=== PATIENT | male | born 1945 | race Caucasian/White ===

== ENCOUNTER 2018-01-02 13:26 | Outpatient (CLI) | payer MEDICARE, BC ==
--- NOTE | 2018-01-02 15:49 | MRI ---
MRI ABDOMEN WITH AND WITHOUT CONTRAST: HISTORY: Abnormal mass seen on the recent CT examination. COMPARISON: Outside facility CT exam. TECHNIQUE: Multiplanar, multisequence MRI performed prior to and after the intravenous administration of contras t. FINDINGS: Corresponding to the mass effect segment 2, there is a T2 hyperintense mass measuring up to 1.8 cm wi th peripheral centripetal enhancement indicating hemangioma. No other abnormal enhancing liver mass. There is cholelithiasis that results in a 2-3 mm calculus distal common bile duct right before the co nfluence with the ampula and pancreatic duct. Pancreatic duct size is normal. No dilated loops of large or small bowel in the upper abdomen. No adenopathy. The marrow signal in the spine appears unremarkable. IMPRESSION: 1. Corresponding to the recent abnormality seen on the CT examination is hemangioma. 2. Choledocholithiasis with a 2-3 mm calculus distal common bile duct before the confluence of the a mpulla. 3. Likely a sebaceous cyst or granuloma of the left anterior abdominal wall near level of the umbili cus, but this again is completely evaluated on this examination. Clinical correlation is advised. CODE T POS: [facility]
== END 2018-01-02 13:27 | disposition home or self-care (01) ==
LOC: SCSMRI 13:26
PROVIDERS: ATTEND Internal Medicine Gastroenterology
DX: R93.8 Abnormal findings on diagnostic imaging of other specified body structures (principal); D18.03 Hemangioma of intra-abdominal structures; K80.50 Calculus of bile duct without cholangitis or cholecystitis without obstruction
CPT/HCPCS: 74183

== ENCOUNTER 2018-01-13 08:18 | Day surgery (SDC) | payer MEDICARE, BC ==
[2018-01-10 11:40] VITALS: BMI 27.8
[2018-01-13] MEDS ORDERED: Indomethacin 50 MG SUPP ONE (10:07)
[2018-01-13] MEDS ORDERED: Iothalamate Meglumine 60% 50 ML VIAL FS ONE ×2 (10:08→10:13)
[2018-01-13] MEDS ORDERED: Fentanyl 100 MCG/2 ML VIAL ONE (10:24)
--- NOTE | 2018-01-13 12:27 | RAD ---
ERCP: Intraprocedure fluoroscopy was provided for Dr. Crews. A total of 5 images are submitted for interpre tation. History: Known choledocholithiasis. FINDINGS: There is retrograde opacification of a normal caliber common bile duct and intrahepatic biliary syste m. Last image demonstrates a distal common bile duct stent. Choledocholithiasis is difficult to appr eciate radiographically. IMPRESSION: Unremarkable ERCP. POS: [facility]
[2018-01-13] MEDS ORDERED: Lidocaine 1% PF 5 ML VIAL ONE (12:28)
[2018-01-13] MEDS ORDERED: Ketorolac Tromethamine 30 MG/ML VIAL ONE (12:28)
[2018-01-13] MEDS ORDERED: Ondansetron HCl/PF 4 MG/2 ML Vial ONE (12:28)
[2018-01-13] MEDS ORDERED: PROPOFOL 200 MG/20 ML VIAL ONE (12:28)
[2018-01-13] MEDS ORDERED: Glycopyrrolate 0.2 MG/ML 5 ML SYRINGE ONE (12:28)
--- NOTE | 2018-01-13 12:46 | OP ---
DATE OF PROCEDURE: 01/13/2018 PROCEDURE: Endoscopic retrograde cholangiopancreatography with sphincterotomy. PREOPERATIVE DIAGNOSIS: Choledocholithiasis, identified by MRI of the abdomen. Cholelithiasis was a lso seen. His LFTs have been normal. He has been pain free. OPERATIVE NOTE: Informed consent was obtained from the patient. He was sedated with general anesthe uriel and placed in the prone position. The duodenoscope was advanced easily to the second portion of the duodenum. The ampulla was identified and appeared unremarkable. The common bile duct was easily selectively cannulated. Cholangiogram was performed, which overall appeared normal except for there is a slight meniscus in the distal common bile duct. A complete sphincterotomy was then performed. The duct was swept with a 9 mm balloon with no stone identified. The occlusion cholangiogram was cl ear. The balloon passed easily through the sphincterotomy. The air and fluid were suctioned from th e stomach. The patient tolerated the procedure well without immediate complications. IMPRESSION: 1. Overall, normal cholangiogram with a possible meniscus at the distal most duct. 2. Complete sphincterotomy performed. 3. Balloon sweep of the bile duct with a 9 mm balloon passes easily through the sphincterotomy. No stone was identified. The small 2-3 mm stone noted by MRCP has likely passed. RECOMMENDATIONS: 1. Follow up in GI clinic to follow the trend of the liver tests. 2. Referral for cholecystectomy.
== END 2018-01-13 16:30 | disposition home or self-care (01) ==
LOC: SDC 08:18
PROVIDERS: ATTEND Internal Medicine Gastroenterology
PROC: 0F798ZZ Dilation of Common Bile Duct, Via Natural or Artificial Opening Endoscopic (ICD-10-PCS; principal; 2018-01-13)
DX: K80.70 Calculus of gallbladder and bile duct without cholecystitis without obstruction (principal); N40.0 Benign prostatic hyperplasia without lower urinary tract symptoms; E78.00 Pure hypercholesterolemia, unspecified; K59.00 Constipation, unspecified; Z85.038 Personal history of other malignant neoplasm of large intestine; Z86.010 Personal history of colon polyps; Z79.899 Other long term (current) drug therapy
CPT/HCPCS: 74330; J1885; J2001; J2405; J2704; J3010; Q9961

== ENCOUNTER 2018-01-14 04:07 | Emergency (ER) | payer MEDICARE, BC ==
[2018-01-14 05:17] LABS: Bilirubin Negative (Negative); Blood, Urine Negative (Negative); Clarity Clear (Clear); Glucose, Urine (Dipstick) Negative (Negative); Leukocyte Negative (Negative); Nitrite Negative (Negative); Protein, Urine (Dipstick) Negative (Neg-Trace); Specific Gravity, Urine 1.015 (1.005-1.030); Urobilinogen 0.2 mg/dL (0.2-1.0)
[2018-01-14 05:18] LABS: #Basophils 0.1 thou/uL (0.0-0.2); #Eosinphils 0.1 thou/uL (0.0-0.7); #Lymphocytes 0.7 thou/uL (1.20-3.40); #Monocytes 0.5 thou/uL (0.11-0.59); #Neutrophils 9.3 thou/uL (1.40-6.50); %Basophils 0.5 % (0.0-1.0); %Eosinophils 0.6 % (0.0-10.0); %Lymphocytes 6.1 % (21.0-51.0); %Monocytes 4.9 % (0.0-10.0); %Neutrophils 87.9 % (42.0-75.0); Hemoglobin 17.3 g/dL (14.0-18.0); Mean Corpuscular HGB CONC 34.2 g/dL (32.0-36.0); Mean Corpuscular Hemoglobin 29.8 pg (27.0-31.0); Mean Corpuscular Volume 87.2 fL (78.0-98.0); Mean Platelet Volume 7.1 fL (7.4-10.4); Platelet Count 152 thou/uL (130-400); Red Blood Cell (RBC) Count 5.81 mill/uL (4.70-6.10); White Blood Cell (WBC) Count 10.6 thou/uL (4.8-10.8)
[2018-01-14 05:29] LABS: Anion Gap 14 mmol/L (10-20); BUN (Urea Nitrogen) 15 mg/dL (8.4-25.7); Calc. Creatinine Clearance 0 mL/min (70-130); Calcium 9.9 mg/dL (7.8-10.44); Carbon Dioxide 28 mmol/L (23-31); Chloride 105 mmol/L (98-107); Estimated GFR-MDRD 60; Glucose 116 mg/dL (83-110); Potassium 4.1 mmol/L (3.5-5.1); Sodium 143 mmol/L (136-145)
[2018-01-14] MEDS ORDERED: Acetaminophen 500 MG TAB ONE (06:46)
== END 2018-01-14 06:55 | disposition home or self-care (01) ==
LOC: SCSER 04:07
DX: R33.9 Retention of urine, unspecified (principal); E78.5 Hyperlipidemia, unspecified; Z79.899 Other long term (current) drug therapy
CPT/HCPCS: 36415; 51701; 80048; 81003; 85025

== ENCOUNTER 2018-03-10 09:49 | Outpatient (CLI) | payer MEDICARE, BC ==
[2018-03-10 10:43] LABS: #Eosinphils 0.1 thou/uL (0.0-0.7); #Lymphocytes 1.9 thou/uL (1.20-3.40); #Monocytes 0.5 thou/uL (0.11-0.59); #Neutrophils 3.4 thou/uL (1.40-6.50); %Basophils 0.5 % (0.0-1.0); %Eosinophils 1.8 % (0.0-10.0); %Lymphocytes 31.7 % (21.0-51.0); Hemoglobin 16.5 g/dL (14.0-18.0); Mean Corpuscular HGB CONC 32.3 g/dL (32.0-36.0); Mean Corpuscular Hemoglobin 29.5 pg (27.0-31.0); Mean Corpuscular Volume 91.2 fL (78.0-98.0); Mean Platelet Volume 7.3 fL (7.4-10.4); Platelet Count 191 thou/uL (130-400); RBC Distribution Width 12.4 % (11.5-14.5); Red Blood Cell (RBC) Count 5.61 mill/uL (4.70-6.10)
[2018-03-10 11:07] LABS: ALT (SGPT) 27 U/L (8-55); AST (SGOT) 27 U/L (5-34); Albumin 4.4 g/dL (3.4-4.8); Alkaline Phosphatase 82 U/L (40-150); Anion Gap 10 mmol/L (10-20); BUN (Urea Nitrogen) 26 mg/dL (8.4-25.7); Bilirubin, Direct 0.2 mg/dL (0.1-0.3); Bilirubin, Total 0.6 mg/dL (0.2-1.2); Calc. Creatinine Clearance 0 mL/min (70-130); Calcium 9.5 mg/dL (7.8-10.44); Carbon Dioxide 29 mmol/L (23-31); Chloride 105 mmol/L (98-107); Estimated GFR-MDRD 65; Glucose 92 mg/dL (83-110); Potassium 4.3 mmol/L (3.5-5.1); Protein, Total 6.7 g/dL (5.8-8.1); Sodium 140 mmol/L (136-145)
== END 2018-03-10 09:50 | disposition home or self-care (01) ==
LOC: LABBT 09:49
PROVIDERS: ATTEND Surgery
DX: Z01.812 Encounter for preprocedural laboratory examination (principal); K80.50 Calculus of bile duct without cholangitis or cholecystitis without obstruction
CPT/HCPCS: 80048; 80076; 85025

== ENCOUNTER 2018-03-13 07:32 | Day surgery (SDC) | payer MEDICARE, BC ==
[2018-03-10 10:22] VITALS: BMI 29.4
[2018-03-13] MEDS ORDERED: CEFAZOLIN 2 GM/50 ML BAG ONE (08:18)
[2018-03-13] MEDS ORDERED: Iothalamate Meglumine 60% 50 ML VIAL FS ONE (08:55)
[2018-03-13] MEDS ORDERED: Bupivacaine/Epinephrine 0.25% 30 ML VIAL ONE (08:55)
[2018-03-13] MEDS ORDERED: Fentanyl 100 MCG/2 ML VIAL ONE ×4 (09:03→11:52)
--- NOTE | 2018-03-13 11:44 | RAD ---
CHOLANGIOGRAM IN SURGERY: COMPARISON: MRI of the abdomen 01/02/2018 and ERCP 01/13/2018. HISTORY: Choledocholithiasis. FINDINGS/IMPRESSION: Limited intraoperative fluoroscopic views of a cholangiogram taken in surgery were submitted for inte rpretation. Contrast is seen within the common bile duct and duodenum. No biliary dilatation is see n. No obvious filling defects are seen within the common bile duct. POS: [facility]
[2018-03-13] MEDS ORDERED: Ketorolac Tromethamine 30 MG/ML VIAL ONE (12:35)
[2018-03-13] MEDS ORDERED: Lidocaine 1% PF 5 ML VIAL ONE (12:35)
[2018-03-13] MEDS ORDERED: Dexamethasone 20 MG/5 ML VIAL ONE (12:35)
[2018-03-13] MEDS ORDERED: Glycopyrrolate 0.2 MG/ML 5 ML SYRINGE ONE (12:35)
[2018-03-13] MEDS ORDERED: PROPOFOL 200 MG/20 ML VIAL ONE (12:35)
[2018-03-13] MEDS ORDERED: Ondansetron PF 4 MG/2 ML Vial ONE (12:35)
[2018-03-13] MEDS ORDERED: HYDROcodone/Acetaminophen 5/325 mg Tablet ONE (13:41)
--- NOTE | 2018-03-14 14:35 | OP ---
DATE OF PROCEDURE: 03/13/2018 PREOPERATIVE DIAGNOSIS: History of choledocholithiasis and cholelithiasis. POSTOPERATIVE DIAGNOSES: 1. History of choledocholithiasis and cholelithiasis. 2. Multiple intra-abdominal adhesions. PROCEDURE PERFORMED: Laparoscopic cholecystectomy with intraoperative cholangiogram. ANESTHESIA: General. BLOOD LOSS: Minimal. COMPLICATION: None. SPECIMENS: Gallbladder. FINDINGS: Normal cholangiogram. DESCRIPTION OF PROCEDURE: The patient was taken to the operating room and laid supine on the operating room table. After general anesthetic was obtained, the abdomen was prepped and draped in a sterile fashion. Due to his previous surgery, left subcostal 5 mm Optiview trocar was placed. High-flow pneumoperitoneum was obtained. The Optiview trocar was in a pocket surrounded by bowel. Even though the abdomen insufflates with air, the open abdomen is not able to be seen, so the trocar is left in place and a curved incision was made below the umbilicus in the area of previous midline incision. Cautery was and a small zari was made in the fascia. The abdominal cavity was entered carefully using a Danae clamp. A 5-mm trocar was placed and high-flow pneumoperitoneum was obtained. Two right upper quadrant 5-mm ports and a subxiphoid 5-mm port were all placed under direct visualization. Camera was placed in the upper port, looked back at the umbilicus and this port as well is surrounded by intraabdominal adhesions and small intestine. Extensive lysis of adhesions is used to take down all the small bowel loops to make sure there is no injury. All the small bowel loop adhesions in the left upper quadrant are taken down to be sure that the subcostal Optiview did not injure the bowel. There was no obvious injury to any bowel. There was no ongoing bleeding. The peritoneum of the gallbladder was opened anteriorly and posteriorly. The critical view triangle was seen showing only the cystic duct and cystic artery branching from medial to lateral. There were no other branching structures. A clip was placed on the cystic duct. A cholangiocatheter was brought in through a separate stab incision and cholangiogram was performed, showed good contrast flow into the duodenum, left and right hepatic ducts without obstruction. The cholangiocatheter was removed and two clips were placed proximally on the cystic duct, cut using laparoscopic scissors. Cystic artery was taken in same way. Cautery was used to dissect the gallbladder out of the gallbladder fossa. The gallbladder was placed in an Endo Catch bag and brought out through the Roman. There was no bleeding in the liver bed. All port sites were infiltrated using local anesthetic. All ports were removed under camera visualization. Pneumoperitoneum was let down. Again, extensive lysis of adhesions was performed and the small bowel was inspected and found to be without injury prior to finishing the procedure. PDS was used to close the fascia defect below the umbilicus. All incision were irrigated and closed with 4-0 Monocryl and Dermabond. The patient was transferred to Recovery in stable condition. All instrument counts, needle counts, and lap counts were correct. Job ID: [id number]
== END 2018-03-13 15:30 | disposition home or self-care (01) ==
LOC: SDC 07:32
PROVIDERS: ATTEND Surgery
PROC: 0FT44ZZ Resection of Gallbladder, Percutaneous Endoscopic Approach (ICD-10-PCS; principal; 2018-03-13)
PROC: BF131ZZ Fluoroscopy of Gallbladder and Bile Ducts using Low Osmolar Contrast (ICD-10-PCS; 2018-03-13)
DX: K80.10 Calculus of gallbladder with chronic cholecystitis without obstruction (principal); K66.0 Peritoneal adhesions (postprocedural) (postinfection); Z79.899 Other long term (current) drug therapy
CPT/HCPCS: 47532; 88304; 96374; J1100; J1610; J1885; J2001; J2405; J2704; J3010; Q9961

== ENCOUNTER 2019-06-04 08:53 | Outpatient (CLI) | payer MEDICARE, BC ==
--- NOTE | 2019-06-04 10:43 | RAD ---
KUB: Date: 06/04/2019 HISTORY: Chronic constipation. FINDINGS: The bowel gas pattern appears nonobstructed. No renal calculi are seen. Surgical clips in the right u pper quadrant are most compatible with cholecystectomy. There are arthritic changes of the spine. IMPRESSION: No acute findings. POS: [facility]
== END 2019-06-04 08:54 | disposition home or self-care (01) ==
LOC: SCSRAD 08:53
PROVIDERS: ATTEND Internal Medicine Gastroenterology
DX: K59.09 Other constipation (principal)
CPT/HCPCS: 74018

== ENCOUNTER 2020-04-18 13:40 | Outpatient (CLI) | payer MEDICARE ==
[~2020-04-18 13:40] MED LIST: Magnevist 469MG/ML 20 ML VIAL ONE
--- NOTE | 2020-04-18 19:07 | MRI ---
MR ABDOMEN WITH AND WITHOUT CONTRAST: History: Pruritus. Comparison: MRI 01-02-18 FINDINGS: Multiplanar, multisequence MRI of the abdomen performed prior to and after the intravenous administra tion of contrast. No significant pericardial or pleural effusion. The spleen is unremarkable. Prior cholecystectomy. Along the second portion of the duodenum, along the lateral margin, is a fluid filled diverticulum. M ild intrahepatic and extrahepatic biliary dilatation due to multiple stacked stones within the more c entral common bile duct. The common bile duct measures up to 9 mm. Partially sclerosing hemangioma hepatic segment 2. Small scattered hepatic segment 5 and 6 cysts, sub 5 mm. Hepatic veins are patent. Portal vein is patent. Aorta is nonaneurysmal. Likely some mild narrowing of the celiac trunk via the median arcuate ligament. The superior mesenter ic artery is patent. Superior mesenteric vein is patent. No hydronephrosis. No abnormal enhancing renal mass. No noemi hepatis adenopathy. No intraperitoneal or periaortic adenopathy. Mild hyperenhancement of th e distal common bile duct within the pancreas. IMPRESSION: Multiple stacked choledocholithiasis within the distal common bile duct at the pancreatic head with m ild hyperenhancement indicating some inflammatory response and cholangitis. ERCP with removal recomme nded. Code CR. A [employer] message was sent to the ordering provider, Maria Isabel Holland, at 3:35 p.m. POS: [facility]
== END 2020-04-18 13:41 | disposition home or self-care (01) ==
LOC: BICMRI 13:40
PROVIDERS: ATTEND Physician Assistant Medical
DX: L29.9 Pruritus, unspecified (principal); R94.5 Abnormal results of liver function studies; K80.50 Calculus of bile duct without cholangitis or cholecystitis without obstruction; K83.09 Other cholangitis
CPT/HCPCS: 74183; 82565; A9579

== ENCOUNTER 2020-04-19 10:18 | Outpatient (CLI) | payer MEDICARE ==
[2020-04-19 18:58] LABS: SARS-CoV-2 MS2 Positive; SARS-CoV-2 N Gene Negative; SARS-CoV-2 S Gene Negative; SARS-CoV-2 by NAA Not Detected (NotDetected); SARS-CoV-2 orf1ab Negative
== END 2020-04-19 10:19 | disposition home or self-care (01) ==
LOC: LABBT 10:18
PROVIDERS: ATTEND Internal Medicine Gastroenterology
DX: Z01.812 Encounter for preprocedural laboratory examination (principal); K80.50 Calculus of bile duct without cholangitis or cholecystitis without obstruction; R94.5 Abnormal results of liver function studies; Z20.822 Contact with and (suspected) exposure to COVID-19
CPT/HCPCS: 87635; U0003

== ENCOUNTER 2020-04-20 01:10 | Observation (INO) | payer MEDICARE ==
[2020-04-20 01:51] LABS: #Lymphocytes 0.6 thou/uL (1.20-3.40); #Monocytes 0.7 thou/uL (0.11-0.59); #Neutrophils 10.8 thou/uL (1.40-6.50); %Basophils 0.1 % (0.0-1.0); %Eosinophils 0.1 % (0.0-10.0); %Lymphocytes 4.6 % (21.0-51.0); %Monocytes 6.1 % (0.0-10.0); %Neutrophils 89.1 % (42.0-75.0); Hemoglobin 16.3 g/dL (14.0-18.0); Mean Corpuscular HGB CONC 33.3 g/dL (32.0-36.0); Mean Corpuscular Hemoglobin 31.2 pg (27.0-31.0); Mean Corpuscular Volume 93.7 fL (78.0-98.0); Mean Platelet Volume 8.2 fL (7.4-10.4); Platelet Count 185 thou/uL (130-400); RBC Distribution Width 11.9 % (11.5-14.5); Red Blood Cell (RBC) Count 5.23 mill/uL (4.70-6.10); White Blood Cell (WBC) Count 12.1 thou/uL (4.8-10.8)
[2020-04-20 02:12] LABS: ALT (SGPT) 321 U/L (8-55); AST (SGOT) 311 U/L (5-34); Albumin 4.1 g/dL (3.4-4.8); Alkaline Phosphatase 933 U/L (40-110); Anion Gap 19 mmol/L (10-20); BUN (Urea Nitrogen) 20 mg/dL (8.4-25.7); Bilirubin, Total 4.4 mg/dL (0.2-1.2); Calc. Creatinine Clearance 0 mL/min (70-130); Calcium 9.2 mg/dL (7.8-10.44); Carbon Dioxide 22 mmol/L (23-31); Chloride 100 mmol/L (98-107); Globulin 2.8 g/dL (2.4-3.5); Glucose 135 mg/dL (83-110); Lipase 17 U/L (8-78); Potassium 3.6 mmol/L (3.5-5.1); Protein, Total 6.9 g/dL (5.8-8.1); Sodium 137 mmol/L (136-145)
[2020-04-20] MEDS ORDERED: Morphine 4 MG/ML VIAL ONE (02:59)
[2020-04-20] MEDS ORDERED: Piperacillin/Tazobactam 3.375 GM VIAL ONE ×2 (03:00→15:27)
[2020-04-20] MEDS ORDERED: Ondansetron PF 4 MG/2 ML Vial ONE ×2 (03:00→09:04)
--- NOTE | 2020-04-20 04:20 | PDOC.HHP ---
Hospitalist HPI - History of Present Illness abdominal pain History of Present Illness: 74 yr old male with paroxysmal atrial flutter s/p ablation , colon cancer s/p resection in the 1980s , chronic abdominal pain s/p diagnosed with gallstones and underwent cholecystectomy 2 years ago but still recurrent low grade pain symptoms . He was seen by GI and noted on abdominal imaging with choledocholithiasis and scheduled for ERCP today. He developed sudden nausea, with chills and recurrence of his abdominal pain this pm . He presented for eval . GI has been discussed with and plan for continuing ERCP in am. He was noted with elevated WBC at 12.6. He has been started on antibiotics. He reports hx of recurrent urine retention post general anaesthesia requiring smith catheter placement. Hospitalist ROS - Review of Systems Constitutional: reports: fever, chills, malaise Eyes: denies: pain, vision change, conjunctivae inflammation, eyelid inflammation, redness, other ENT: denies: ear pain, ear discharge, nose pain, nose discharge, nose congestion, mouth pain, mouth swelling, throat pain, throat swelling, other Respiratory: denies: cough, dry, shortness of breath, hemoptysis, SOB with excertion, pleuritic pain, sputum, wheezing, other Cardiovascular: denies: chest pain, palpitations, orthopnea, paroxysmal noc. dyspnea, edema, light headedness, other Gastrointestinal: reports: nausea, abdominal pain, constipation Genitourinary: reports: retention Musculoskeletal: denies: neck pain, shoulder pain, arm pain, back pain, hand pain, leg pain, foot pain, other Skin: denies: rash, lesions, amado, bruising, other Neurological: denies: weakness, numbness, incoordination, change in speech, confusion, seizures, other Hospitalist History - Past Medical History Source: patient Cardiac: reports: Hyperlipidemia Heme/Onc: reports: Cancer - Family History Family History: reports: cancer, cerebrovascular accident - Social History Smoking Status: Never smoker Activity level: independent ambulation - Exam General Appearance: NAD, awake alert General - other findings: Middle aged male , Eye: PERRL, anicteric sclera ENT: normocephalic atraumatic, moist mucosa Neck: supple, no JVD Heart: RRR, no murmur Respiratory: CTAB, no wheezes Gastrointestinal: soft, non-tender, no guarding, no rigidity Extremities: no cyanosis, no clubbing Skin: normal turgor, no lesions Neurological: cranial nerve grossly intact, no focal deficits Hospitalist Results - Labs Result Diagrams: 04/20/20 01:41 04/20/20 01:41 Lab results: WBC 12.1 thou/uL (4.8-10.8) H 04/20/20 01:41 Hgb 16.3 g/dL (14.0-18.0) 04/20/20 01:41 Hct 49.0 % (42.0-52.0) 04/20/20 01:41 MCV 93.7 fL (78.0-98.0) 04/20/20 01:41 Plt Count 185 thou/uL (130-400) 04/20/20 01:41 Neutrophils % 89.1 % (42.0-75.0) H 04/20/20 01:41 Sodium 137 mmol/L (136-145) 04/20/20 01:41 Potassium 3.6 mmol/L (3.5-5.1) 04/20/20 01:41 Chloride 100 mmol/L (98-107) 04/20/20 01:41 Carbon Dioxide 22 mmol/L (23-31) L 04/20/20 01:41 BUN 20 mg/dL (8.4-25.7) 04/20/20 01:41 Creatinine 0.99 mg/dL (0.7-1.3) 04/20/20 01:41 Glucose 135 mg/dL (83-110) H 04/20/20 01:41 Calcium 9.2 mg/dL (7.8-10.44) 04/20/20 01:41 Total Bilirubin 4.4 mg/dL (0.2-1.2) H 04/20/20 01:41 AST 311 U/L (5-34) H 04/20/20 01:41 ALT 321 U/L (8-55) H 04/20/20 01:41 Alkaline Phosphatase 933 U/L (40-110) H 04/20/20 01:41 Serum Total Protein 6.9 g/dL (5.8-8.1) 04/20/20 01:41 Albumin 4.1 g/dL (3.4-4.8) 04/20/20 01:41 Lipase 17 U/L (8-78) 04/20/20 01:41 - Radiology Interpretation Abdominal x-ray Status: image reviewed by me Hospitalist H&P A/P - Problem (1) Choledocholithiasis with acute cholecystitis Code(s): K80.42 - CALCULUS OF BILE DUCT W ACUTE CHOLECYSTITIS W/O OBSTRUCTION Status: Acute (2) Tachycardia Code(s): R00.0 - TACHYCARDIA, UNSPECIFIED Status: Acute (3) Urine retention Code(s): R33.9 - RETENTION OF URINE, UNSPECIFIED Status: Acute - Plan Plan: # Choledocholithiaisis - with acute cholangitis -follow plan for ERCP -start gentle IVF -start empirical abx -follow wbc trend -obtain blood cx # Tachycardia- given hx of atrial flutter -will start low dose metoprolol for better rate control and decrease sabrina- procedure cardiac risk # Hx of recurrent urine retention -post Anaesthesia - will do trial of Bethenecol tid post ERCP - do bladder scan with post void with prn straight cath -c/w flomax for BPH # DVT prop - start lovenox post procedure # Advance Directive - full code
[2020-04-20] MEDS ORDERED: HYDROcodone/Acetaminophen 7.5/325 mg Tablet PO PRN (04:42)
[2020-04-20] MEDS ORDERED: Bisacodyl 5 MG TAB PO PRN (04:42)
[2020-04-20] MEDS ORDERED: Ondansetron PF 4 MG/2 ML Vial IVP PRN (04:42)
[2020-04-20] MEDS ORDERED: Morphine 2 MG/ML VIAL SLOW IVP PRN (04:48)
[2020-04-20] MEDS ORDERED: Metoprolol Tartrate 25 MG TAB PO SCH (06:00)
[2020-04-20] MEDS ORDERED: Lidocaine 1% PF 5 ML VIAL ONE (09:04)
[2020-04-20] MEDS ORDERED: Dexamethasone 20 MG/5 ML VIAL ONE (09:04)
[2020-04-20] MEDS ORDERED: PROPOFOL 200 MG/20 ML VIAL ONE (09:04)
[2020-04-20] MEDS ORDERED: Rocuronium Bromide 10 MG/ML (10ML VIAL) ONE (09:04)
[2020-04-20] MEDS ORDERED: Glycopyrrolate 0.2 MG/ML 5 ML SYRINGE ONE (09:04)
[2020-04-20 10:25] VITALS: BMI 27.9
[2020-04-20] MEDS: Sodium Chloride 0.9% 1,000 ML IV SCH ×2 (10:52→18:30)
[2020-04-20] MEDS: Famotidine/PF 20 mg/2ml Vial SLOW IVP SCH ×2 (10:55→20:18)
[2020-04-20] MEDS ORDERED: Sodium Chloride 0.9% 100 ML ONE (15:27)
[2020-04-20] MEDS ORDERED: Indomethacin 50 MG SUPP ONE ×2 (15:29)
[2020-04-20] MEDS ORDERED: Iothalamate Meglumine 60% 50 ML VIAL FS ONE (15:30)
[2020-04-20] MEDS ORDERED: Fentanyl 100 MCG/2 ML VIAL ONE (15:36)
--- NOTE | 2020-04-20 16:50 | RAD ---
EXAM: XR ERCP PROVIDED CLINICAL HISTORY: Choledocholithiasis COMPARISON: MRI abdomen 04/18/2020 FINDINGS: Multiple spot fluoroscopic images of the right upper quadrant were obtained during the course of ERCP , demonstrating multiple common duct filling defects on the initial images which are not present on the final submitted image. IMPRESSION: As above.
[2020-04-20] MEDS ORDERED: Promethazine HCl 25 MG/ML VIAL SLOW IVP PRN (16:57)
[2020-04-20] MEDS ORDERED: Ondansetron HCl/PF 4 MG/2 ML Vial IVP PRN (16:57)
[2020-04-20] MEDS ORDERED: Promethazine HCl 25 MG/ML VIAL IM PRN (16:57)
[2020-04-20] MEDS ORDERED: PSEUDOEPHEDRINE HCL 120 MG PO PRN (17:19)
--- NOTE | 2020-04-20 17:34 | OP ---
DATE OF PROCEDURE: 04/20/2020 PROCEDURE PERFORMED: Endoscopic retrograde cholangiopancreatography with sphincterotomy and balloon stone extraction. PREOPERATIVE DIAGNOSIS: Choledocholithiasis. DESCRIPTION OF PROCEDURE: Informed consent was obtained from the patient. He was sedated with general anesthesia and placed in the prone position. The duodenoscope was advanced easily to the second portion of the duodenum, where the ampulla was identified. There was a prior sphincterotomy and the common bile duct was selectively cannulated easily on first attempt. Cholangiogram was performed, which showed two filling defects in the common bile duct measuring 10 mm. The intrahepatic ducts were normal. The common bile duct was dilated to 11 mm. The sphincterotomy was extended by a couple of mm; however, there was very little room to actually extend this beyond the original cut. A 12 mm balloon passes through the sphincterotomy with minimal resistance. Two oblong 10 mm yellow and brown pigment stones were extracted from the bile duct with a balloon. Occlusion cholangiogram then confirmed the duct to be clear. Contrast and bile flowed freely from the duct after the stones swept out. There was a small amount of pus that was swept from the duct as well. IMPRESSION: 1. Cholangiogram showing two filling defects in the common bile duct which was dilated to 11 mm. The intrahepatic ducts were unremarkable. Mild cholangitis was present with a small amount of pus extracted from the duct as well. 2. Sphincterotomy extended by a couple of mm. There has been a prior complete sphincterotomy. 3. 12 mm balloon passes through the sphincterotomy without resistance. 4. Two stones measuring 10 mm, which were oblong and yellow and brown pigment were extracted from the duct with good drainage of bile and contrast. Occlusion cholangiogram confirmed the duct to be clear. RECOMMENDATIONS: 1. Advance diet as tolerated. 2. Restart home medications. 3. Recheck his liver tests in the morning. 4. He should be okay to discharge home tomorrow morning. Job ID: [id number]
--- NOTE | 2020-04-20 17:45 | CON ---
DATE OF CONSULTATION: 04/20/2020 CHIEF COMPLAINT: Abdominal pain. HISTORY OF PRESENT ILLNESS: Mr. Milner presented to GI Clinic on 04/14/2020 for evaluation of generalized pruritus and it started a couple of days before. Liver tests were obtained that showed the alkaline phosphatase to be elevated at 571 with an AST of 121, ALT of 149, and bilirubin was 0.7. The CBC was normal at that time. MRCP was then scheduled, which was performed on 04/18/2020, which showed cholelithiasis and dilation of the common bile duct to 9 mm. ERCP was scheduled for today. However, last night, he developed nausea, vomiting, chills, and upper abdominal pain. Therefore, he went onto the emergency room. He was found to have elevations of his white blood cell count and he was admitted for further care. His bilirubin is increased to 4.4, AST was up to 311 with ALT of 321, and alkaline phosphatase of 933. PAST MEDICAL HISTORY: 1. Colon cancer status post resection in the remote past. 2. Hyperlipidemia. 3. BPH with urinary retention. PAST SURGICAL HISTORY: 1. Colon resection. 2. Cholecystectomy. 3. ERCP with sphincterotomy back in 2018. FAMILY HISTORY: Negative for GI malignancy. His father had multiple myeloma. Mother had Parkinson disease. SOCIAL HISTORY: No alcohol, tobacco, or drugs. ALLERGIES: NO KNOWN DRUG ALLERGIES. HOME MEDICATIONS: Include: 1. Finasteride. 2. Tamsulosin. 3. Linzess. 4. MiraLAX. 5. Multiple vitamins. REVIEW OF SYSTEMS: Negative x10 systems reviewed except as stated in history of present illness. PHYSICAL EXAMINATION: VITAL SIGNS: Temperature 99.9, pulse 77, blood pressure 114/71. GENERAL: No acute distress. Alert and oriented x3. HEENT: Eyes have no scleral icterus. Oropharynx is clear without lesions. No cervical or supraclavicular lymphadenopathy. LUNGS: Clear to auscultation bilaterally. HEART: Regular rate and rhythm without murmur. ABDOMEN: Soft. Mild upper abdominal tenderness without guarding. Bowel sounds are present. EXTREMITIES: No lower extremity edema. LABORATORY DATA: White blood cell count 12.1, hemoglobin 16.3, and platelets 185. Bilirubin 4.4, AST 311, ALT 321, alkaline phosphatase 933, albumin 4.1, and lipase 17. IMPRESSION: 1. Choledocholithiasis, confirmed by MRCP associated with elevated liver tests. 2. Cholangitis. He has developed elevated white blood cell count and increased pain and chills. 3. Chronic constipation, for which he is on Linzess and MiraLAX twice daily. 4. Benign prostatic hypertrophy, on tamsulosin and finasteride. RECOMMENDATIONS: 1. ERCP today. 2. Zosyn prior to procedure. 3. Restart home medications after the procedure for his BPH and constipation. Job ID: [id number]
[2020-04-20] MEDS: Vit A,C & E/Lutein/Minerals Tablet PO SCH (20:18)
[2020-04-20] MEDS: Tamsulosin HCl 0.4 MG CAP PO SCH (20:18)
[2020-04-20] MEDS: Metoprolol Tartrate 25 MG TAB PO SCH (20:18)
[2020-04-20] MEDS: Polyethylene Glycol 3350 17 GM Packet PO SCH (20:23)
[2020-04-20] MEDS: Piperacillin/Tazobactam 3.375 GM in Sodium Chloride 0.9% 100 ML IVPB SCH (21:58)
[2020-04-20] MEDS ORDERED: Melatonin 3 MG TAB PO PRN (22:11)
[2020-04-21] MEDS: Piperacillin/Tazobactam 3.375 GM in Sodium Chloride 0.9% 100 ML IVPB SCH ×2 (03:15→09:33)
[2020-04-21] MEDS: Sodium Chloride 0.9% 1,000 ML IV SCH (05:20)
[2020-04-21 06:58] LABS: ALT (SGPT) 209 U/L (8-55); AST (SGOT) 116 U/L (5-34); Albumin 3.2 g/dL (3.4-4.8); Alkaline Phosphatase 602 U/L (40-110); Anion Gap 12 mmol/L (10-20); BUN (Urea Nitrogen) 23 mg/dL (8.4-25.7); Bilirubin, Total 3.6 mg/dL (0.2-1.2); Calc. Creatinine Clearance 72 mL/min (70-130); Calcium 8.2 mg/dL (7.8-10.44); Carbon Dioxide 23 mmol/L (23-31); Chloride 105 mmol/L (98-107); Globulin 2.4 g/dL (2.4-3.5); Glucose 170 mg/dL (83-110); Lipase 9 U/L (8-78); Protein, Total 5.6 g/dL (5.8-8.1); Sodium 136 mmol/L (136-145)
[2020-04-21] MEDS ORDERED: Multivit, Therapeutic 1 TAB PO SCH (09:00)
[2020-04-21] MEDS ORDERED: Enoxaparin Sodium 40 MG/0.4 ML SYRINGE SC SCH (09:00)
[2020-04-21] MEDS ORDERED: Finasteride 5 MG TAB PO SCH (09:00)
[2020-04-21] MEDS ORDERED: (Linaclotide [Linzess] 290 MCG Capsule) PO SCH (09:00)
[2020-04-21] MEDS: Metoprolol Tartrate 25 MG TAB PO SCH (09:18)
[2020-04-21] MEDS: Polyethylene Glycol 3350 17 GM Packet PO SCH (09:18)
[2020-04-21] MEDS: Famotidine/PF 20 mg/2ml Vial SLOW IVP SCH (09:18)
[2020-04-21] MEDS: Vit A,C & E/Lutein/Minerals Tablet PO SCH (09:18)
[2020-04-21] MEDS: Tamsulosin HCl 0.4 MG CAP PO SCH (09:18)
[2020-04-21 11:21] VITALS: BP 110/76; TEMP 97.4
[2020-04-21 11:26] LABS: Hemoglobin 13.9 g/dL (14.0-18.0); Mean Corpuscular HGB CONC 33.5 g/dL (32.0-36.0); Mean Corpuscular Hemoglobin 31.7 pg (27.0-31.0); Mean Corpuscular Volume 94.6 fL (78.0-98.0); Mean Platelet Volume 9.4 fL (7.4-10.4); Platelet Count 157 thou/uL (130-400); RBC Distribution Width 11.9 % (11.5-14.5); Red Blood Cell (RBC) Count 4.38 mill/uL (4.70-6.10); White Blood Cell (WBC) Count 9.7 thou/uL (4.8-10.8)
[2020-04-21 11:36] LABS: Band 4 % (5-11); Eosinophils 1 % (0-10); Lymphocytes 7 % (21-51); MDiff Complete? YES; Monocytes 5 % (0-10); Neutrophil 79 % (42-75); RBC Morphology Normal; Reactive Lymphocytes 4 % (0-10)
--- NOTE | 2020-04-21 20:32 | PDOC.DS.DS ---
Provider - Provider Date of Admission: 04/20/20 06:55 Date of Discharge: 04/21/20 Admitting Provider: Oscar Mccoy MD Consultations: Gastroentrology Primary Care Physician: Cruz Scott MD Course - Hospital Course Hospital Course: Patient is a 74-year-old male with cholecystectomy in the past who presented to the emergency room with nausea, vomiting along with abdominal discomfort. He was found to have WBC of 12.1 with total bilirubin 4.4, AST 311, ALT 321 and alkaline phosphatase of 933. Recent abdominal MRI showed choledocholithiasis within the distal common bile duct at the pancreatic head with possible cholangitis. Please refer to the history and physical for further details. The patient was admitted to the hospital with the above diagnosis. He underwent ERCP that showed findings consistent with choledocholithiasis with small amount of pus. He remained on IV Zosyn overnight after the ERCP. Abdominal pain, nausea and vomiting is resolved. Patient is tolerating regular consistency. Gastroenterology recommended no need for further antibiotics. He was advised to follow-up with gastroenterology clinic as outpatient. Final diagnosis: Nausea/vomiting/fever due to choledocholithiasis with cholangitis with sepsisPOA Abnormal LFTs due to abovePOA Chronic constipation Benign prostatic hypertrophy CKD stage II Resuscitation Status: 04/20/20 04:42 Resuscitation Status Routine Resuscitation Status: FULL: Full Resuscitation - Labs Lab Results: 04/21/20 05:42 04/21/20 05:42 Abnormal Lab Results - Last 48 hrs 04/20/20 01:41: Carbon Dioxide 22 L, Total Bilirubin 4.4 H, AST 311 H, ALT 321 H, Alkaline Phosphatase 933 H 04/20/20 01:41: WBC 12.1 H, MCH 31.2 H, Neutrophils % 89.1 H, Lymphocytes % 4.6 L, Neutrophils # 10.8 H, Lymphocytes # 0.6 L, Monocytes # 0.7 H 04/21/20 05:42: Total Bilirubin 3.6 H, AST 116 H, ALT 209 H, Alkaline Phosphatase 602 H, Serum Total Protein 5.6 L, Albumin 3.2 L 04/21/20 05:42: RBC 4.38 L, Hgb 13.9 L, Hct 41.5 L, MCH 31.7 H, Neutrophils % (Manual) 79 H, Band Neuts % (Manual) 4 L, Lymphocytes % (Manual) 7 L Microbiology - Entire Visit 04/20/20 08:16 Venous blood - Right Arm Blood Culture - Preliminary Specimen has been received and culture in progress. No Growth to date. 04/20/20 08:16 Venous blood - Left Arm Blood Culture - Preliminary Specimen has been received and culture in progress. No Growth to date. - Physical Exam Vitals: Vital Signs (12 hours) Temp Pulse Resp BP Pulse Ox 04/21/20 11:18 97.4 F L 84 17 110/76 96 Weight Weight 195 lb Physical Exam: The patient was seen and examined on the day of discharge. Plan - Discharge Medications Home Medications: Medication Instructions Recorded Confirmed Type Multivitamin [Daily Multiple 1 tab PO QAM 01/10/18 04/20/20 History Vitamin] Polyethylene Glycol 3350 [Miralax] 1 cap PO TID 01/10/18 04/20/20 History Tamsulosin HCl 0.4 mg PO BID 01/10/18 04/20/20 History Vit C/E/Zn/Coppr/Lutein/Zeaxan 1 capsule PO BID 01/10/18 04/20/20 History [PreserVision Areds 2 Softgel] Linaclotide [Linzess] 1 tab PO QAM 04/19/20 04/20/20 History Finasteride [Proscar] 5 mg PO DAILY 04/20/20 04/20/20 History Allergies: No Known Allergies Allergy (Verified 04/19/20 12:33) - Discharge Instructions Discharge Instructions:: LFTs after 2 week - PCP to arrange/follow - Follow up Plan Referrals: Cruz Scott MD [Primary Care Provider] - 7 Days Odin Crews MD [Active] - 14 Days Disposition: HOME Quality - Care Measures CORE MEASURES:: N/A
== END 2020-04-21 12:24 | disposition home or self-care (01) ==
LOC: ERS 01:10 → T4-B 06:55
PROVIDERS: ADMIT Student in an Organized Health Care Education/Training Program; ATTEND Internal Medicine
PROC: 0FC98ZZ Extirpation of Matter from Common Bile Duct, Via Natural or Artificial Opening Endoscopic (ICD-10-PCS; principal; 2020-04-20)
PROC: 0F798ZZ Dilation of Common Bile Duct, Via Natural or Artificial Opening Endoscopic (ICD-10-PCS; 2020-04-20)
DX: A41.9 Sepsis, unspecified organism (principal); K80.32 Calculus of bile duct with acute cholangitis without obstruction; K59.09 Other constipation; N40.1 Benign prostatic hyperplasia with lower urinary tract symptoms; R33.8 Other retention of urine; N18.2 Chronic kidney disease, stage 2 (mild); I48.0 Paroxysmal atrial fibrillation; E78.5 Hyperlipidemia, unspecified; Z85.038 Personal history of other malignant neoplasm of large intestine; Z79.899 Other long term (current) drug therapy; Z90.49 Acquired absence of other specified parts of digestive tract
CPT/HCPCS: 36415; 74330; 80053; 83690; 85007; 85025; 85027; 87040; 93005; 96365; 96366; 96372; 96375; 96376; G0378; J1100; J1610; J1650; J2270; J2405; J2543; J2704; J3010; J3490; S0028

== ENCOUNTER 2023-04-29 09:59 | Outpatient (CLI) | payer OTHER ==
[2023-04-29 10:51] LABS: #Eosinphils 0.1 10x3/uL (0.0-0.5); #Monocytes 0.5 10x3/uL (0.0-1.1); #Neutrophils 4.3 10x3/uL (1.5-8.4); %Basophils 0.5 % (0.0-2.0); %Eosinophils 1.4 % (0.0-6.0); %Lymphocytes 24.5 % (18.0-47.0); %Monocytes 8.2 % (0.0-10.0); %Neutrophils 65.1 % (40.0-75.0); Mean Corpuscular HGB CONC 35.3 g/dL (32.0-36.0); Mean Corpuscular Hemoglobin 31.1 pg (27.0-33.0); Mean Corpuscular Volume 88.2 fl (81.2-95.1); Mean Platelet Volume 9.9 fl (7.4-10.4); Platelet Count 193 10x3/uL (150-450); RBC Distribution Width 12.6 % (11.5-14.5); Red Blood Cell (RBC) Count 5.78 10x6/uL (4.32-5.72); White Blood Cell (WBC) Count 6.6 10x3/uL (3.5-10.5)
[2023-04-29 10:58] LABS: Anion Gap 13 mmol/L (10-20); BUN (Urea Nitrogen) 22 mg/dL (8.4-25.7); Calc. Creatinine Clearance 0 mL/min (70-130); Calcium 9.9 mg/dL (7.8-10.44); Carbon Dioxide 27 mmol/L (23-31); Chloride 105 mmol/L (98-107); Estimated GFR 67; Glucose 99 mg/dL (83-110); Potassium 4.3 mmol/L (3.5-5.1); Sodium 141 mmol/L (136-145)
== END 2023-04-29 10:00 | disposition home or self-care (01) ==
LOC: LABBT 09:59
PROVIDERS: ATTEND Specialist
DX: Z01.818 Encounter for other preprocedural examination (principal); K40.90 Unilateral inguinal hernia, without obstruction or gangrene, not specified as recurrent
CPT/HCPCS: 71046; 80048; 85025; 93005; 93010

== ENCOUNTER 2023-06-11 05:59 | Day surgery (SDC) | payer OTHER ==
[2023-04-29 10:26] VITALS: BMI 29.4
[2023-06-11] MEDS ORDERED: Acetaminophen 500 MG TAB ONE (06:18)
[2023-06-11] MEDS ORDERED: Ketorolac Tromethamine 30 MG (1 mL) VIAL ONE (06:18)
[2023-06-11] MEDS ORDERED: CEFAZOLIN 2 GM VIAL ONE (06:19)
[2023-06-11] MEDS ORDERED: Sodium Chloride 0.9% 100 ML ONE (06:19)
[2023-06-11] MEDS ORDERED: Bupivacaine 0.25% HCL 30 ML VIAL ONE (07:00)
[2023-06-11] MEDS ORDERED: EPINEPHrine 1 MG/ML VIAL ONE (07:00)
[2023-06-11] MEDS ORDERED: Esmolol 100 MG/10 ML VIAL ONE (07:21)
[2023-06-11] MEDS ORDERED: fentaNYL PF 100 MCG/2 ML SYRINGE ONE (07:21)
[2023-06-11] MEDS ORDERED: Dexamethasone 4 mg/ml Vial ONE (07:21)
[2023-06-11] MEDS ORDERED: Ondansetron PF 4 MG/2 ML Vial ONE (07:21)
[2023-06-11] MEDS ORDERED: PROPOFOL 20 ML ONE (07:21)
[2023-06-11] MEDS ORDERED: Rocuronium Bromide 10 MG/ML (10ML VIAL) ONE (07:21)
[2023-06-11] MEDS ORDERED: Lidocaine 1% PF 5 ML VIAL ONE (07:26)
[2023-06-11] MEDS ORDERED: SUGAMMADEX SODIUM 200 MG/2 ML VIAL ONE (08:30)
[2023-06-11] MEDS ORDERED: HYDROcodone/Acetaminophen 5/325 mg Tablet ONE (11:10)
== END 2023-06-11 12:22 | disposition home or self-care (01) ==
LOC: SDC 05:59
PROVIDERS: ATTEND Specialist
PROC: 0YUA4JZ Supplement Bilateral Inguinal Region with Synthetic Substitute, Percutaneous Endoscopic Approach (ICD-10-PCS; principal; 2023-06-11)
DX: K40.20 Bilateral inguinal hernia, without obstruction or gangrene, not specified as recurrent (principal); Z90.49 Acquired absence of other specified parts of digestive tract; Z90.79 Acquired absence of other genital organ(s)
CPT/HCPCS: 49650; A4314; C1781 ×2; J0171; J0665; J1100; J1885; J2405; J2704; J3490